=== PATIENT | male | born 1975 | race Caucasian/White ===

== ENCOUNTER 2016-10-24 19:15 | Emergency (ER) | payer SELFPAY ==
[~2016-10-24] VITALS: Ht 177.8 cm; Wt 83.9 kg
[2016-10-24 19:29] VITALS: BP 137/95
[2016-10-24] MEDS ORDERED: LIDOCAINE 1%/EPI 1:100,000 20 ML VIAL. INJ ONE (20:00)
[2016-10-24] MEDS ORDERED: LIDOCAINE 1%/EPI 1:200,000 30 ML VIAL. INJ ONE (20:00)
[2016-10-24] MEDS ORDERED: HYDROCODONE/APAP 5/325MG TABLET. PO ONE (20:00)
[2016-10-24] MEDS ORDERED: DIPHTH,PERTUSS(ACELL),TET TOX 0.5 ML DISP.SYRIN. VAX IM ONE (20:00)
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
[2016-10-24] MEDS ORDERED: HYDR-971 PO (20:40)
== END 2016-10-24 20:58 | disposition home or self-care (01) ==
LOC: ER 19:15 → EEVIPCON 19:15 → ER 20:58
DX: S01.112A Laceration without foreign body of left eyelid and periocular area, initial encounter (principal); S00.83XA Contusion of other part of head, initial encounter; I25.2 Old myocardial infarction; Y08.89XA Assault by other specified means, initial encounter; Y93.89 Activity, other specified; Y99.8 Other external cause status; Y92.89 Other specified places as the place of occurrence of the external cause
CPT/HCPCS: 12013; 90471; 90715; 99283; J3490